=== PATIENT | male | born 1965 | race Two or more races ===

== ENCOUNTER 2020-06-13 19:19 | Inpatient (IN) | payer OTHER ==
[~2020-06-13] VITALS: Ht 157.5 cm; Wt 83.1 kg
[2020-06-13] MEDS ORDERED: PANTOPRAZOLE 40 MG 10ML VIAL IV STA (19:33)
[2020-06-13] MEDS ORDERED: AMLODIPINE BESY10 MG PO (19:40)
[2020-06-13] MEDS ORDERED: SODIUM CHLORIDE 0.9% 50ML 50 ML ONE ×2 (20:00→23:02)
[2020-06-13] MEDS ORDERED: IOPAMIDOL 370 MG/ML 200 ML INFUS..BTL INJ ONE (20:00)
[2020-06-13] MEDS ORDERED: ONDANSETRON HCL INJ 2MG/ML 2ML 2 MG/ML VIAL IV PRN (20:15)
[2020-06-13] MEDS ORDERED: MORPHINE SULFATE INJ 2 MG/ML SYR IV PRN (20:15)
[2020-06-13] MEDS ORDERED: SODIUM CHLORIDE 0.9% 1000ML 1,000 ML IV STA (20:18)
[2020-06-13] MEDS ORDERED: PANTOPRAZOLE 40 MG 10ML VIAL ONE (20:44)
[2020-06-13] MEDS ORDERED: SODIUM CHLORIDE 0.9% 500ML 500 ML ONE (20:45)
[2020-06-13 20:55] LABS: CREATINE KINASE MB 1.3 ng/mL (0-5.0)
[2020-06-13] MEDS ORDERED: OCTREOTIDE ACETATE 500 MCG in SODIUM CHLORIDE 0.9% 250ML 250 ML SQ SCH (22:15)
[2020-06-13 22:52] VITALS: BP 128/76
[2020-06-13] MEDS: PIPERACILLIN/TAZOBAC 3.375 GM in SODIUM CHLORIDE 0.9% 50ML 50 ML IV SCH (22:57)
[2020-06-13 23:00] VITALS: BP 128/76
[2020-06-13] MEDS ORDERED: PIPERACILLIN/TAZOBAC 3.375 GM VIAL ONE (23:01)
[2020-06-13] MEDS ORDERED: SODIUM CHLORIDE 0.9% 250ML 250 ML ONE (23:01)
[2020-06-13] MEDS ORDERED: SODIUM CHLORIDE 0.9% 250ML 250 ML IV ONE (23:15)
[2020-06-13] MEDS ORDERED: ACETAMINOPHEN 325 MG TAB PO PRN (23:15)
[2020-06-13] MEDS: OCTREOTIDE ACETATE 500 MCG in SODIUM CHLORIDE 0.9% 250ML 249 ML SQ SCH (23:40)
[2020-06-14] VITALS (9 sets, daily range): BP systolic 113–127; BP diastolic 60–83
[2020-06-14] MEDS ORDERED: PIPER-TAZ 3.375 GM 50 ML IV SCH
[2020-06-14] MEDS ORDERED: SODIUM CHLORIDE 0.9% 250ML 250 ML ONE (03:39)
[2020-06-14] MEDS ORDERED: PIPERACILLIN/TAZOBAC 3.375 GM VIAL ONE ×3 (06:14→16:17)
[2020-06-14] MEDS ORDERED: SODIUM CHLORIDE 0.9% 50ML 50 ML ONE ×3 (06:14→16:18)
[2020-06-14] MEDS: PIPERACILLIN/TAZOBAC 3.375 GM in SODIUM CHLORIDE 0.9% 50ML 50 ML IV SCH ×3 (06:35→17:00)
[2020-06-14] MEDS: PANTOPRAZOLE 40 MG 10ML VIAL IV SCH ×2 (08:27→20:35)
[2020-06-14 08:41] LABS: BASOPHILS # (AUTO) 0.1 (0.0-0.1); BASOPHILS % 0.9 % (0.0-1.0); EOSINOPHILS # (AUTO) 0.8 (0.0-0.4); EOSINOPHILS % 9.6 % (0.0-6.0); HEMATOCRIT 25.3 % (38.2-49.6); HEMOGLOBIN 7.9 g/dL (14.0-18.0); LYMPHOCYTES # (AUTO) 1.8 (1.0-3.2); LYMPHOCYTES % 21.1 % (18.0-39.1); MEAN CORPUSCULAR HEMOGLOBIN 26.8 pg (28-32); MEAN CORPUSCULAR HGB CONC 31.2 g/dL (31-35); MEAN CORPUSCULAR VOLUME 85.8 fL (81-99); MONOCYTES # (AUTO) 0.9 (0.2-0.8); MONOCYTES % 10.7 % (4.4-11.3); NEUTROPHILS % 57.4 % (38.7-80.0); PLATELET COUNT 325 x10e3/uL (140-360); RED BLOOD COUNT 2.95 x10e6/uL (4.3-5.7); RED CELL DISTRIBUTION WIDTH 14.4 % (11.7-14.4)
[2020-06-14] MEDS ORDERED: HYDRALAZINE HCL 20 MG/ML VIAL IV PRN (08:45)
[2020-06-14 08:46] LABS: ALANINE AMINOTRANSFERASE 85 IU/L (0-55); ALBUMIN 3.1 g/dL (3.5-5.0); ALBUMIN/GLOBULIN RATIO 0.8 (0.8-2.0); ALKALINE PHOSPHATASE 76 IU/L (40-150); ANION GAP 11.9 mmol/L (8-16); BLOOD UREA NITROGEN 9 mg/dL (7-26); BUN/CREATININE RATIO 8 (6-25); CALCIUM 7.7 mg/dL (8.4-10.2); CARBON DIOXIDE 28 mmol/L (22-29); CHLORIDE 106 mmol/L (98-107); CREATINE KINASE MB 0.8 ng/mL (0-5.0); CREATININE, SERUM 1.07 mg/dL (0.72-1.25); EST GLOMERULAR FILTRATION RATE > 60 ML/MIN (60-); GLUCOSE 128 mg/dL (74-118); POTASSIUM 3.9 mmol/L (3.5-5.1); SODIUM 142 mmol/L (136-145)
[2020-06-14] MEDS: OCTREOTIDE ACETATE 500 MCG in SODIUM CHLORIDE 0.9% 250ML 249 ML SQ SCH ×2 (11:48→20:35)
[2020-06-14] MEDS ORDERED: PROPOFOL IV EMULSION 10 MG/ML 20 ML VIAL ONE (12:22)
[2020-06-14] MEDS ORDERED: ATROPINE SULFATE 1 MG/ML VIAL ONE (12:22)
[2020-06-14] MEDS ORDERED: MIDAZOLAM HCL 2 MG/2 ML VIAL ONE (13:02)
[2020-06-14] MEDS ORDERED: FENTANYL CITRATE/PF 100MCG/2 ML INJ ONE (13:02)
[2020-06-14] MEDS: SUCRALFATE 1 GM TAB PO SCH ×2 (17:00→20:35)
[2020-06-15] VITALS (8 sets, daily range): BP systolic 116–131; BP diastolic 73–82
[2020-06-15] MEDS: PIPERACILLIN/TAZOBAC 3.375 GM in SODIUM CHLORIDE 0.9% 50ML 50 ML IV SCH ×4 (00:15→17:24)
[2020-06-15] MEDS ORDERED: PIPERACILLIN/TAZOBAC 3.375 GM VIAL ONE ×5 (00:16→23:54)
[2020-06-15] MEDS ORDERED: SODIUM CHLORIDE 0.9% 50ML 50 ML ONE ×5 (00:16→23:54)
[2020-06-15] MEDS ORDERED: SODIUM CHLORIDE 0.9% 250ML 250 ML ONE (00:20)
[2020-06-15] MEDS: OCTREOTIDE ACETATE 500 MCG in SODIUM CHLORIDE 0.9% 250ML 249 ML SQ SCH ×2 (05:30→15:52)
[2020-06-15 06:15] LABS: BASOPHILS # (AUTO) 0.1 (0.0-0.1); BASOPHILS % 1.1 % (0.0-1.0); HEMATOCRIT 26.2 % (38.2-49.6); HEMOGLOBIN 8.1 g/dL (14.0-18.0); LYMPHOCYTES # (AUTO) 2.1 (1.0-3.2); LYMPHOCYTES % 18.2 % (18.0-39.1); MEAN CORPUSCULAR HEMOGLOBIN 26.7 pg (28-32); MEAN CORPUSCULAR HGB CONC 30.9 g/dL (31-35); MEAN CORPUSCULAR VOLUME 86.5 fL (81-99); MONOCYTES % 8.4 % (4.4-11.3); NEUTROPHILS # (AUTO) 7.2 (2.1-6.9); PLATELET COUNT 357 x10e3/uL (140-360); RED BLOOD COUNT 3.03 x10e6/uL (4.3-5.7); RED CELL DISTRIBUTION WIDTH 14.6 % (11.7-14.4)
[2020-06-15 06:22] LABS: ANION GAP 12.8 mmol/L (8-16); BLOOD UREA NITROGEN 8 mg/dL (7-26); BUN/CREATININE RATIO 7 (6-25); CALCIUM 7.9 mg/dL (8.4-10.2); CARBON DIOXIDE 27 mmol/L (22-29); CHLORIDE 104 mmol/L (98-107); CREATININE, SERUM 1.23 mg/dL (0.72-1.25); EST GLOMERULAR FILTRATION RATE > 60 ML/MIN (60-); GLUCOSE 143 mg/dL (74-118); POTASSIUM 3.8 mmol/L (3.5-5.1); SODIUM 140 mmol/L (136-145)
[2020-06-15] MEDS: SUCRALFATE 1 GM TAB PO SCH ×4 (09:05→20:44)
[2020-06-15] MEDS: PANTOPRAZOLE 40 MG 10ML VIAL IV SCH ×2 (09:05→20:44)
[2020-06-15 10:20] LABS: CHOL/HDL RATIO 5.5 (3.9-4.7)
[2020-06-16] VITALS (7 sets, daily range): BP systolic 105–123; BP diastolic 64–82
[2020-06-16] MEDS: PIPERACILLIN/TAZOBAC 3.375 GM in SODIUM CHLORIDE 0.9% 50ML 50 ML IV SCH ×4 (00:07→16:28)
[2020-06-16] MEDS: OCTREOTIDE ACETATE 500 MCG in SODIUM CHLORIDE 0.9% 250ML 249 ML SQ SCH ×2 (02:15→12:59)
[2020-06-16 05:54] LABS: BASOPHILS # (AUTO) 0.1 (0.0-0.1); BASOPHILS % 1.1 % (0.0-1.0); EOSINOPHILS # (AUTO) 0.9 (0.0-0.4); HEMATOCRIT 27.4 % (38.2-49.6); HEMOGLOBIN 8.4 g/dL (14.0-18.0); LYMPHOCYTES # (AUTO) 2.2 (1.0-3.2); LYMPHOCYTES % 26.3 % (18.0-39.1); MEAN CORPUSCULAR HEMOGLOBIN 26.2 pg (28-32); MEAN CORPUSCULAR HGB CONC 30.7 g/dL (31-35); MEAN CORPUSCULAR VOLUME 85.4 fL (81-99); MONOCYTES # (AUTO) 0.9 (0.2-0.8); MONOCYTES % 10.4 % (4.4-11.3); NEUTROPHILS # (AUTO) 4.3 (2.1-6.9); NEUTROPHILS % 50.7 % (38.7-80.0); PLATELET COUNT 393 x10e3/uL (140-360); RED BLOOD COUNT 3.21 x10e6/uL (4.3-5.7); RED CELL DISTRIBUTION WIDTH 14.5 % (11.7-14.4); RETICULOCYTE % 3.6 % (0.8-2.2)
[2020-06-16 06:03] LABS: PROTHROMBIN TIME 13.8 seconds (11.9-14.5)
[2020-06-16] MEDS ORDERED: SODIUM CHLORIDE 0.9% 50ML 50 ML ONE ×4 (06:05→23:26)
[2020-06-16] MEDS ORDERED: PIPERACILLIN/TAZOBAC 3.375 GM VIAL ONE ×4 (06:05→23:26)
[2020-06-16 06:12] LABS: % IRON SATURATION 5 % (15-50); IRON 17 ug/dL (65-175); TOTAL IRON BINDING CAPACITY 321 ug/dL (261-478); TRANSFERRIN 229 mg/dL (174-364)
[2020-06-16] MEDS: SUCRALFATE 1 GM TAB PO SCH ×4 (10:09→21:24)
[2020-06-16] MEDS: PANTOPRAZOLE 40 MG 10ML VIAL IV SCH ×2 (10:09→21:24)
[2020-06-17] VITALS: BP 119/78
[2020-06-17] MEDS: PIPERACILLIN/TAZOBAC 3.375 GM in SODIUM CHLORIDE 0.9% 50ML 50 ML IV SCH ×2 (00:04→05:02)
[2020-06-17] MEDS: OCTREOTIDE ACETATE 500 MCG in SODIUM CHLORIDE 0.9% 250ML 249 ML SQ SCH (00:04)
[2020-06-17 04:00] VITALS: BP 112/79
[2020-06-17] MEDS ORDERED: PIPERACILLIN/TAZOBAC 3.375 GM VIAL ONE (04:39)
[2020-06-17] MEDS ORDERED: SODIUM CHLORIDE 0.9% 50ML 50 ML ONE (04:39)
[2020-06-17] MEDS ORDERED: FERROUS SULFAT325 M1 PO (07:50)
[2020-06-17] MEDS ORDERED: ZOFRAN4 MG PO (07:50)
[2020-06-17] MEDS ORDERED: CARAFATE1 GM PO (07:50)
[2020-06-17] MEDS ORDERED: PANTOPRAZOLE SO40 MG PO (07:50)
[2020-06-17 08:09] VITALS: BP 115/77
[2020-06-17 08:56] VITALS: BP 115/77
[2020-06-17] MEDS ORDERED: IRON SUCROSE 100 MG in SODIUM CHLORIDE 0.9% 100 ML 100 ML IV SCH (09:00)
[2020-06-17] MEDS: PANTOPRAZOLE 40 MG 10ML VIAL IV SCH (09:41)
[2020-06-17] MEDS: SUCRALFATE 1 GM TAB PO SCH (09:41)
== END 2020-06-17 11:35 | disposition home or self-care (01) | DRG 871 ==
LOC: FSED 19:30 → ERHOLD 20:07 → MED/SURG2 22:18
PROVIDERS: ADMIT Internal Medicine; ATTEND Internal Medicine
PROC: 30233N1 Transfusion of Nonautologous Red Blood Cells into Peripheral Vein, Percutaneous Approach (ICD-10-PCS; 2020-06-13)
PROC: 0DB78ZX Excision of Stomach, Pylorus, Via Natural or Artificial Opening Endoscopic, Diagnostic (ICD-10-PCS; 2020-06-14)
PROC: 0DB68ZX Excision of Stomach, Via Natural or Artificial Opening Endoscopic, Diagnostic (ICD-10-PCS; principal; 2020-06-14 11:00)
DX: A41.9 Sepsis, unspecified organism (principal); K25.5 Chronic or unspecified gastric ulcer with perforation; K29.71 Gastritis, unspecified, with bleeding; D62 Acute posthemorrhagic anemia; I10 Essential (primary) hypertension; R00.0 Tachycardia, unspecified; Z20.822 Contact with and (suspected) exposure to COVID-19; K26.9 Duodenal ulcer, unspecified as acute or chronic, without hemorrhage or perforation; E66.9 Obesity, unspecified; Z68.33 Body mass index [BMI] 33.0-33.9, adult
CPT/HCPCS: 36415; 43239; 74177; 80048; 80053; 80061; 82550; 82553; 82607; 82746; 83036; 83540; 84466; 84484; 85025; 85045; 85610; 86850; 86900; 86920; 88305; 88312; 88342; 93005; 99284; J0461; J1756; J2250; J2270; J2353; J2543; J3010; J7040; J7050; P9016; Q9967; U0002